=== PATIENT | female | born 1990 | race Caucasian/White ===

== ENCOUNTER 2021-12-31 15:11 | Emergency (ER) | payer MEDICAID ==
[2021-12-31] MEDS ORDERED: Sodium Chloride 0.9% 1,000 ML IV ONE (15:42)
[2021-12-31] MEDS ORDERED: Ondansetron 4 MG/2 ML SDV IVPUSH ONE (15:42)
[2021-12-31] MEDS ORDERED: Ondansetron 4 MG Tab.DIS PO ONE (15:47)
[2021-12-31 16:34] LABS: CARBON DIOXIDE,CO2 28.6 mmol/L (21.0-32.0); POTASSIUM,K 3.8 mmol/L (3.5-5.1)
== END 2021-12-31 17:14 | disposition home or self-care (01) ==
LOC: MW.ED 15:11
DX: K52.9 Noninfective gastroenteritis and colitis, unspecified (principal); Z88.5 Allergy status to narcotic agent; Z86.16 Personal history of COVID-19
CPT/HCPCS: 36415; 80053; 81003; 81025; 83690; 85025; 96361; 96374; 99284; J2405; J7030